=== PATIENT | male | born 1950 | race Caucasian/White ===

== ENCOUNTER 2017-01-09 09:10 | Inpatient (IN) | payer MEDICARE, OTHER ==
--- NOTE | 2017-01-03 13:15 | HP ---
PREOPERATIVE HISTORY AND PHYSICAL: DATE OF ADMISSION: 01/09/17 PROVIDER: Denia Eagle MD * (DICTATED BY DALILA HINES) CHIEF COMPLAINT: Right hip pain. HISTORY OF PRESENT ILLNESS: Mr. Rosario is a 66-year-old gentleman who has had ongoing right hip pain for several years, it has became chronic groin pain and he has pain with prolonged activity, sitting and ambulating. He failed conservative treatment and is interested in surgical intervention for correction of the problem. PAST MEDICAL HISTORY: 1. 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 3. History of rib fracture and shoulder fracture. 4. History of pneumonia. 5. Heart palpitations. 6. Right bundle-branch block. 7. Iridocyclitis. 8. Hypertension. 9. Atrial premature complexes. PAST SURGICAL HISTORY: Inguinal hernia repair. He reports no complications with anesthesia with that procedure. CURRENT MEDICATIONS: 1. Metoprolol succinate 25 mg half tab daily. 2. Dextroamphetamine sulfate 10 mg half tab twice daily as needed. 3. Alprazolam 0.5 mg p.o. t.i.d. p.r.n. 4. Cialis 20 mg one half to one tab p.r.n. 5. Multivitamins one daily. 6. Zinc supplement as needed. 7. Acetaminophen 650 mg p.o. q.4 hours as needed. ALLERGIES: INDOMETHACIN. FAMILY HISTORY: Positive for cancer and heart disease. SOCIAL HISTORY: He lives with his . He works in research. He denies tobacco and recreational drug use. He has minimal alcohol use. He is an active gentleman and is an independent ambulator. REVIEW OF SYSTEMS: Constitutional: Negative for fevers, chills, night sweats, unexplained weight loss, or recent hospitalization. Head: Negative for headaches, lightheadedness, or balance problems. ENT: Negative for blurred or double vision, changes to his hearing, sore throat, runny nose, or frequent nose bleed. Cardiovascular: Negative for chest or arm pain with exertion, history of heart attack. Positive for heart palpitations. Positive for hypertension. Negative for DVT. Respiratory: Negative for chronic cough, shortness of breath with exertion, asthma, or COPD. Gastrointestinal: Negative for heartburn, nausea, vomiting, diarrhea, constipation, or GERD. Genitourinary: Negative for nighttime urination, frequency of urination, urinary tract infections, or kidney problems. Musculoskeletal: Negative for chronic back pain, or recent fractures. Skin: Negative for rashes, lesions, lumps, or sores. Neurologic: Negative for seizure, stroke, epilepsy, depression. Positive for anxiety. Endocrine: Negative for diabetes or thyroid problems. Hematology: Negative for easy bleeding, bruising, or anemia. PHYSICAL EXAMINATION GENERAL: He is a well-developed, well-nourished pleasant male, in no acute distress at rest. He is alert and oriented x3 with appropriate mood and affect. VITAL SIGNS: The patient is 6 feet tall, 211 pounds. Blood pressure 138/86, pulse 76, respirations 14, temperature 97.0. HEENT: Normocephalic, atraumatic. His hearing and vision are grossly intact. NECK: His trachea is midline. RESPIRATORY: Lungs are clear to auscultation bilaterally. No wheezes, rales, or rhonchi. CARDIOVASCULAR: Regular rate and rhythm. No murmurs, rubs, or gallops appreciated. Normal S1 and S2. ABDOMEN: Soft, nondistended, and nontender. Normal bowel sounds. GAIT: The patient has an antalgic gait favoring the right hip. EXTREMITIES: Right lower extremity, skin is intact. There is no abrasion or open wound. Hip flexion to 90 degrees produces groin pain. He has 0 degrees of internal rotation and 30 degrees of external rotation with significant groin pain. There is no edema or varicosities distally. He has 5/5 ankle plantar flexion, dorsiflexion strength. Sensation to light touch is intact. He has 2+ dorsalis pedis pulse. IMAGING: X-rays of the right hip were reviewed and showed degenerative osteoarthritis of the right hip joint with [id number] contact, subchondral sclerosis and subchondral cyst formation. IMPRESSION: Right hip osteoarthritis. PLAN: The patient is to undergo right total hip arthroplasty by Dr. Eagle on . The risks, benefits, and postoperative course were discussed with the patient and he would like to proceed. A prescription for Percocet was sent to his pharmacy for postoperative pain. Coumadin was sent for DVT prophylaxis. All of his questions were answered to his full satisfaction. He is understanding to call if he develops problems or concerns. DALILA HINES [id number]/[facility] #: [id number] EDWARDO
[~2017-01-09 09:10] MED LIST: Buffered Lidocaine 0.9% SYRIN* 5 ML/SYR SYRINGE INTRADERM ONE; Famotidine IV* 10 MG/ML 2 ML (20 mg) IV ONE; Metoclopramide TAB* 10 MG PO ONE
[2017-01-09] MEDS ORDERED: Famotidine IV* 10 MG/ML 2 ML (20 mg) ONE (09:13)
[2017-01-09] MEDS ORDERED: Metoclopramide TAB* 10 MG ONE (09:14)
[2017-01-09] MEDS ORDERED: Buffered Lidocaine 0.9% SYRIN* 5 ML/SYR SYRINGE ONE (09:14)
[2017-01-09] MEDS ORDERED: ceFAZolin 2 GM PREMIX (*) 2 GM/50 ML BAG IVPB ONE (09:14)
[2017-01-09] MEDS ORDERED: Ketorolac INJ* 30 MG/ML 1 ML VIAL ONE (10:26)
[2017-01-09] MEDS ORDERED: Lidocaine 2% PF * 5 ML VIAL ONE (10:26)
[2017-01-09] MEDS ORDERED: Propofol* 10 MG/ML 20 ML BTL IV PUSH ONE (10:26)
[2017-01-09] MEDS ORDERED: Dexamethasone IV* 4 MG/ML 1 ML (4 MG) ONE (10:26)
[2017-01-09] MEDS ORDERED: Ondansetron INJ* 2 MG/ML VIAL ONE (10:26)
[2017-01-09] MEDS ORDERED: fentaNYL* 50 MCG/ML 5 ML VIAL (250 MCG VIAL) ONE (10:27)
[2017-01-09] MEDS ORDERED: Midazolam* 1 MG/ML 5 ML VIAL (5 MG) ONE (10:27)
[2017-01-09] MEDS ORDERED: Rocuronium* 10 MG/ML VIAL ONE (10:27)
[2017-01-09] MEDS ORDERED: KETAMINE HCL* 50 MG/ML 10 ML VIAL ONE (10:27)
[2017-01-09] MEDS ORDERED: Phenylephrine IV* 40 MCG/ML 10 ML SYRINGE ONE (13:03)
[2017-01-09] MEDS ORDERED: Ondansetron ODT TAB* 4 MG PO PRN (13:57)
[2017-01-09] MEDS ORDERED: HYDROmorphone INJ* 1 MG/ML CARPUJECT SYRINGE IV PRN (13:57)
[2017-01-09] MEDS ORDERED: DiMENhydriNATE IV* 50 MG/ML VIAL IV PUSH PRN (13:57)
[2017-01-09] MEDS ORDERED: fentaNYL* 50 MCG/ML 2 ML VIAL (100 MCG VIAL) IV PRN (13:57)
[2017-01-09] MEDS ORDERED: Ondansetron INJ* 2 MG/ML VIAL IV PRN (14:33)
[2017-01-09] MEDS ORDERED: oxyCODONE/Acetamin 5/325 MG* TAB PO PRN (14:33)
[2017-01-09] MEDS ORDERED: Bisacodyl SUPP* 10 MG SUPP PR PRN (14:33)
[2017-01-09] MEDS ORDERED: Morphine INJ* 2 MG/ML 1 ML SYRINGE (TWO MG - NEW SYRINGE VERSION) IV PRN (14:33)
[2017-01-09] MEDS ORDERED: diPHENhydraMINE IV* 50 MG/ML 1 ml VIAL (BENADRYL) IV PRN (14:33)
[2017-01-09] MEDS ORDERED: Temazepam CAP* 15 MG PO PRN (14:33)
[2017-01-09] MEDS ORDERED: Acetaminophen TAB* 325 MG PO PRN (14:33)
[2017-01-09] MEDS ORDERED: oxyCODONE TAB* 5 MG TAB PO PRN (14:33)
[2017-01-09] MEDS ORDERED: Polyethylene Glycol 3350* 17 GM PACKET PO PRN (14:39)
[2017-01-09] MEDS ORDERED: Senna TAB PO PRN (14:40)
--- NOTE | 2017-01-09 14:44 | RAD ---
Indication: Right hip replacement. Single view of the right hip demonstrates right hip replacement in satisfactory position. IMPRESSION: Right hip replacement in satisfactory position.
[2017-01-09] MEDS ORDERED: Bupivacaine 0.5% SDV PF* 30 ML VIAL ONE (14:46)
[2017-01-09] MEDS ORDERED: HYDROmorphone INJ* 1 MG/ML CARPUJECT SYRINGE ONE (15:07)
[2017-01-09] MEDS ORDERED: Labetalol IV* 5 MG/ML 20 ML VIAL ONE (15:24)
[2017-01-09] MEDS ORDERED: fentaNYL* 50 MCG/ML 2 ML VIAL (100 MCG VIAL) ONE ×2 (15:28→15:32)
--- NOTE | 2017-01-09 16:27 | RAD ---
INDICATION: Status post total right hip replacement surgery. COMPARISON: Comparison is made with a prior x-ray study of the right hip from October 16, 2016. TECHNIQUE: AP and lateral portable films of the right hip were obtained. FINDINGS: The patient is status post total right hip replacement surgery. The bones and prostheses are in normal alignment. There is a small amount of air within the soft tissues consistent with the patient's recent surgery. IMPRESSION: STATUS POST TOTAL RIGHT HIP REPLACEMENT SURGERY.
--- NOTE | 2017-01-09 16:58 | RAD ---
INDICATION: Status post total right hip replacement surgery. COMPARISON: Comparison is made with a prior x-ray study of the right hip from October 16, 2016. TECHNIQUE: An AP view of the pelvis was obtained. FINDINGS: The patient is status post total right hip replacement surgery. The bones and prostheses are in normal alignment. There is a small amount of air in the adjacent soft tissues consistent with the patient's recent surgery. IMPRESSION: STATUS POST TOTAL RIGHT HIP REPLACEMENT SURGERY.
[2017-01-09] MEDS ORDERED: oxyCODONE/Acetamin 5/325 MG* TAB ONE (17:58)
[2017-01-09] MEDS ORDERED: Enoxaparin(*) 40 MG/0.4 ML SYR SUBCUT SCH (18:00)
[2017-01-09] MEDS ORDERED: Warfarin TAB(*) 10 MG PO ONE (18:00)
[2017-01-09] MEDS ORDERED: ceFAZolin 1 GM VIAL(*) 1 GM in NS 0.9% 50 ML* 50 ML IVPB SCH (18:00)
[2017-01-09] MEDS: ALPRAZolam TAB* 0.5 MG PO PRN (18:03)
[2017-01-09] MEDS: Metoprolol Succinate XL TAB* 25 MG PO SCH (19:00)
--- NOTE | 2017-01-09 20:07 | CONS ---
CC: Dr. Díaz; Denia Eagle MD CONSULTATION REPORT: DATE OF CONSULTATION: 01/09/17 PRIMARY CARE PROVIDER: Dr. Díaz. PHYSICIAN REQUESTING CONSULTATION: Denia Eagle MD ATTENDING PHYSICIAN: Radha Yañez MD (report dictated provided by Shabana Vee NP). REASON FOR CONSULTATION: Medical comanagement. HISTORY OF PRESENT ILLNESS: Mr. Rosario is a 66-year-old male with the past medical history significant for PAC's, right bundle-branch block, palpitations, tachycardia, who underwent an elective right total hip replacement on 01/09/[address] Eagle. Prior to the surgery, the patient states he has been in a fairly good state of health except for his chronic right hip pain that failed conservative treatment. Preoperatively, the patient was seen by Dr. Mohan, his pathology teacher, who recommended continued beta-luis therapy and followup echocardiogram for his dilated aortic root. At baseline, the patient had an ejection fraction of 50% to 55%. The patient currently in the PACU. The patient reports a mild degree of discomfort and wishes to be repositioned. He denies any chest pain or shortness of breath. Hospitalists were asked to assist in the comanagement of the patient during his hospitalization. PAST MEDICAL HISTORY: 1. 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 3. History of rib fracture and shoulder fracture. 4. History of pneumonia. 5. Heart palpitations. 6. Right bundle-branch block. 7. Iridocyclitis. 8. Hypertension. 9. PAC's, low normal ejection fraction 50% to 55%. 10. Dilatation of the ascending aorta. PAST SURGICAL HISTORY: Inguinal hernia repair. CURRENT MEDICATIONS: 1. Metoprolol succinate 12.5 mg oral daily. 2. Dextroamphetamine 5 mg twice daily. 3. Xanax 0.5 mg oral 3 times daily as needed. 4. Cialis 20 mg half to one tablet as needed. 5. Multivitamin 1 tablet oral daily. 6. Zinc as needed. 7. Tylenol 650 mg oral every 4 hours as needed. ALLERGIES: INDOMETHACIN. FAMILY HISTORY: Positive for cancer and heart disease. SOCIAL HISTORY: The patient lives with his . He works in research. He denies any tobacco or drug use. He has occasional alcohol use. His , Adelaida Milligan, will be the surrogate decision maker in the event the patient cannot make decisions for himself. REVIEW OF SYSTEMS: I performed a 14-point review of systems; all the pertinent positives and negatives are mentioned in the history of present illness. The remaining review of systems are negative. PHYSICAL EXAM: Vital Signs: Temperature 96.8, heart rate 61, respiratory rate 12, oxygen saturation 99% on room air, blood pressure 119/81. Appearance: The patient is alert, pleasant, appeared to be in no apparent distress. Head, Eyes , Ears, Nose and Throat: Normocephalic/atraumatic. Pupils were equal and reactive to light. Neck: Supple. There was no lymphadenopathy noted. Respiratory: Lungs were clear to auscultation. There was no accessory muscle use. Cardiovascular: Rate and rhythm were regular. There were no murmurs, rubs, or gallops heard. S1 and S2 were crisp. Abdomen was soft, nontender, and nondistended. There were bowel sounds x4. Extremities: There was no lower extremity edema. DP and PT pulses were 2+ and symmetric. Musculoskeletal : There was no clubbing or cyanosis noted. The patient exhibited equal strength bilaterally. I did not assess the full strength of his right lower extremity due to the recent hip surgery. His distal circulation and sensation to movement is intact. Neuro: Cranial nerves II through XII are intact. The patient moves all extremities. Lower extremities were intact to light touch. Psych: The patient is alert and oriented x3. LABORATORY DATA: Preop laboratory data from 12/29/16, sodium 136, potassium 4.2 , chloride 102, CO2 29, BUN 10, creatinine 0.8, glucose 123. White blood cell count 6.1, hemoglobin 15.7, hematocrit 46, platelet count 260,000. INR 0.94, PTT 32.4. X-ray from today of the right hip shows right hip replacement in satisfactory position. IMPRESSION: This is a 66-year-old male with past medical history significant only for hypertension, premature atrial contractions and tachycardia who underwent an elective right total hip replacement with Dr. Eagle. Hospitalists were asked to assist with the comanagement of the patient during his postoperative hospitalization. ASSESSMENT AND PLAN: 1. Postop day #0, right total hip replacement. Management will be per Orthopedic Surgery. The patient will have oxycodone and morphine for pain control. The patient will have his Ferrer discontinued on postop day #1. 2. History of hypertension. Blood pressure is currently controlled. Toprol- XL will continue. 3. Narcolepsy. The patient's amphetamine will be continued if we have something comparable on formulary to substitute or if the patient can supply his own. 4. Fluids, electrolytes, and nutrition. The patient will have a regular diet. 7. DVT prophylaxis will be per Orthopedic Surgery. The patient is on Lovenox and will be started this evening on warfarin. TIME SPENT: Time for this consultation was 50 minutes, and 25 minutes were spent with the patient discussing current medications and events leading up to his elective right total hip replacement. Reviewed by SHABANA VEE NP 01/09/2017 2100 [id number]/[facility] #: [id number] EDWARDO
[2017-01-09] MEDS: Magnesium Hydroxide LIQ* 30 ML UDC PO SCH (20:31)
[2017-01-09] MEDS: oxyCODONE/Acetamin 5/325 MG* TAB PO PRN (20:33)
[2017-01-09] MEDS: ceFAZolin 1 GM VIAL(*) 1 GM in NS 0.9% 50 ML* 50 ML IVPB SCH (20:37)
[2017-01-09] MEDS: Docusate CAP* 100 MG PO SCH (20:37)
[2017-01-09] MEDS: DEXTROAMPHETAMINE SULFATE 5 MG PO SCH (21:19)
[2017-01-10] MEDS: ALPRAZolam TAB* 0.5 MG PO PRN ×2 (00:41→23:26)
[2017-01-10] MEDS: oxyCODONE/Acetamin 5/325 MG* TAB PO PRN ×2 (05:07→12:58)
[2017-01-10] MEDS: ceFAZolin 1 GM VIAL(*) 1 GM in NS 0.9% 50 ML* 50 ML IVPB SCH ×2 (05:09→13:11)
[2017-01-10 06:46] LABS: Hematocrit 37 % (42-52); Hemoglobin 12.5 g/dl (14.0-18.0)
[2017-01-10 07:03] LABS: BUN/Creatinine Ratio 16.9 (8-20); Calcium 8.6 mg/dL (8.6-10.3); EGFR African American 118.5 (>60); EGFR Non-African American 92.1 (>60); Potassium 3.8 mmol/L (3.5-5.0)
--- NOTE | 2017-01-10 08:32 | PN ---
Progress Note - Progress Note Date of Service: 01/10/17 SOAP: Subjective: [] Patient seen OOB in chair. He reports good pain control and has no complaints. Ferrer was removed this morning, no urination yet and no BM yet. Denies nausea, fever, chills, chest pain, shortness of breath and RLE numbness. Objective: [] Vital Signs Temp 98.8 F 01/10/17 03:34 Pulse 74 01/10/17 07:28 Resp 16 01/10/17 07:28 BP 113/57 01/10/17 07:28 Pulse Ox 100 01/10/17 07:28 Intake & Output 01/09/17 01/10/17 01/10/17 18:59 06:59 18:59 Intake Total 2950 2505 356 Output Total 305 1600 Balance 2645 905 356 Weight 211 lb Intake: IV Fluids 2950 950 356 LR 2950 950 356 Oral 1555 Output: Ferrer 275 1600 Residual 30 Ferrer 16 Fr 30 Laboratory Last Values Hgb 12.5 g/dl (14.0-18.0) L 01/10/17 06:22 Hct 37 % (42-52) L 01/10/17 06:22 INR (Anticoag Therapy) 1.06 (0.89-1.11) 01/10/17 06:22 Sodium 134 mmol/L (133-145) 01/10/17 06:22 Potassium 3.8 mmol/L (3.5-5.0) 01/10/17 06:22 Chloride 101 mmol/L (101-111) 01/10/17 06:22 Carbon Dioxide 28 mmol/L (22-32) 01/10/17 06:22 Anion Gap 5 mmol/L (2-11) 01/10/17 06:22 BUN 14 mg/dL (6-24) 01/10/17 06:22 Creatinine 0.83 mg/dL (0.67-1.17) 01/10/17 06:22 Est GFR ( Amer) 118.5 (>60) 01/10/17 06:22 Est GFR (Non-Af Amer) 92.1 (>60) 01/10/17 06:22 BUN/Creatinine Ratio 16.9 (8-20) 01/10/17 06:22 Glucose 118 mg/dL (70-100) H 01/10/17 06:22 Calcium 8.6 mg/dL (8.6-10.3) 01/10/17 06:22 General: Sitting in chair comfortably. Calm, cooperative. No acute distress RLE: Dressing is clean, dry and intact with no surrounding erythema Bilateral lower extremities: Calves are supple and nontender without erythema, edema or palpable cords. Negative shawnee's sign. DF/PF intact. Sensation intact distally. DP/PT pulses 2+ and symmetric Assessment: [POD 1 s/p Right total hip arthroplasty 01/09/17, Dr Eagle Plan: []WBAT PT/OT lovenox and coumadin 10 mg today Pain control with percocet Manage claustrophobia with xanax PRN. Patient states that current dose is adequate.
--- NOTE | 2017-01-10 08:45 | OP ---
DATE OF OPERATION: 01/09/17 - ROOM #342 DATE OF : 46 ATTENDING SURGEON: Denia Eagle MD SLITTER SCORER: DALILA Ashraf. Ms. Philip did help throughout the procedure in preparation of the leg, wound retraction, manipulation of the hip, and wound closure. ANESTHESIOLOGIST: Dr. Babar Michel ANESTHESIA: General. PRE-OP DIAGNOSIS: Severe end-stage degenerative osteoarthritis of the right hip joint. POST-OP DIAGNOSIS: Severe end-stage degenerative osteoarthritis of the right hip joint. OPERATIVE PROCEDURE: Right total hip arthroplasty. COMPLICATIONS: None. EBL: 300 cc. SPECIMEN: Bone and cartilage from the femoral head and acetabular reaming sent to pathology. HARDWARE USED: This was uncemented HyperQuest total hip hardware. For the cup, a Tritanium hemispherical cluster hole shell 56E, a single 20-mm cancellous bone screw. For the liner, a cementless MDM liner 0.3. For the stem, an Accolade TMZF 3.5 with a 132-degree neck. For the head, a 28 -4 Biolox Delta ceramic V40 femoral head. For the insert, a 28/48/42E MDM Gnosticism insert. BRIEF HISTORY/INDICATION: Mr. Rosario is a 66-year-old gentleman with years of increasingly severe right hip pain. He failed conservative treatment with antiinflammatories, pain medication, intraarticular injections, and physical therapy. Radiographs showed [id number] arthritis. The patient elected to undergo right total hip arthroplasty due to continued pain and decreased quality of life. Informed consent was obtained from the patient. He understood the risks of the procedure included but were not limited to bleeding, infection, damage to nearby structures, continued pain, need for further surgery, intraoperative fracture, nerve palsy, hardware failure or loosening, dislocation, leg length discrepancy, stroke, heart attack, blood clot, and . He wished to proceed. INTRAOPERATIVE FINDINGS: Intraoperatively, the patient was noted to have severe arthritis with full-thickness loss of cartilage along the acetabulum and femoral head. DESCRIPTION OF PROCEDURE: Mr. Rosario was identified in the preanesthesia unit. His right lower extremity was marked as the correct operative side. Informed consent was signed and placed in the chart. The patient was taken to the operating room and placed under general anesthesia. A Ferrer catheter was placed. The patient was placed in the left lateral decubitus position on the peg board. All bony prominences were well padded. Right lower extremity was prepped and draped in the normal sterile fashion. Preop time-out was made to correctly identify the patient, side, and site. Appropriate perioperative antibiotics were given within 1 hour of incision. A 12-cm posterior hip incision was made with a 10-blade and carried down to the lateral fascia layer. Lateral fascia was then incised in line with the skin incision. Charnley retractor was placed. Piriformis and conjoint tendons were identified. These were elevated off the posterolateral femur and tagged with #5 Ethibond. Next, electrocautery was used to make a standard posterolateral capsular flap and was also tagged with #5 Ethibond. The hip was carefully dislocated. Lesser troch to center of the femoral head measured 60 mm. Oscillating saw was used to make the appropriate femoral neck cut. Femoral head was carefully removed. The femur was retracted anteriorly. After appropriate placement of retractors, the acetabulum was visualized. A long- handled knife was used to sharply remove any remaining labrum from the acetabular rim. The acetabulum was sequentially reamed up to a size 55. Size 55 reamer established a good bleeding subchondral bone bed. Size 55 trial had excellent fit. A Tritanium cluster hole shell 56E was chosen as the final implant. This was impacted into the acetabulum without difficulty. There was excellent stability of the cup. A single 20-mm cancellous bone screw was placed in the superoposterior quadrant for extra stability. An MDM cementless liner 42E was chosen as the liner. This was impacted into the acetabular cup. Stability of the liner was checked and rechecked, and noted to be stable. Attention was turned next to the femur. Box cut osteotome and canal finder were used to enter the proximal femur. The femur was sequentially broached up to a size 3.5. A 3.5 broach had excellent fit and stability. A 132 neck trial was chosen along with a 28 -4 head trial. The appropriate MDM insert was chosen. Lesser troch to center of the femoral head measured 62 mm. The hip was reduced and taken through a range of motion. The hip was stable in all positions. There is good soft tissue tension and appropriate leg lengths. All trials were carefully removed. Final implant chosen was an Accolade TMZF, size 3.5, with a 132-degree neck. The head chosen was a Biolox Delta ceramic V40 femoral head, 28 -4, and the MDM insert was a 28/48/42E MDM insert. The hip was reduced and taken through a range of motion. Hip was stable in all positions. The hip was copiously irrigated with sterile saline. Previously tagged capsular tendons were reapproximated to the posterolateral femur through two trochanteric drill holes. The lateral fascia layer was closed using interrupted #1 Vicryls. The rest of the incision was closed in a layered fashion using 0 and 2-0 Vicryls. Skin was closed using running 3-0 Monocryl with Dermabond. Sterile Adaptic, 4x4s, and paper tape were used to cover the incision. The patient's anesthesia was reversed without difficulty. He was taken to the PACU in stable condition. Intended weight-bearing will be weightbearing as tolerated with posterior hip precautions. Intended DVT prophylaxis will be Coumadin with a Lovenox bridge. [id number]/[facility] #: [id number] [facility] HOSPITALLizette
[2017-01-10] MEDS ORDERED: Piroxicam CAP* 20 MG PO SCH (09:00)
[2017-01-10] MEDS ORDERED: DEXTROAMPHETAMINE SULFATE 5 MG PO PRN (09:19)
[2017-01-10] MEDS: DEXTROAMPHETAMINE SULFATE 5 MG PO SCH (09:35)
[2017-01-10] MEDS: Magnesium Hydroxide LIQ* 30 ML UDC PO SCH ×2 (09:53→21:19)
[2017-01-10] MEDS: Vitamin THERAPEUTIC TAB PO SCH (09:53)
[2017-01-10] MEDS: Docusate CAP* 100 MG PO SCH ×2 (09:53→21:19)
[2017-01-10] MEDS: Enoxaparin(*) 40 MG/0.4 ML SYR SUBCUT SCH (09:57)
--- NOTE | 2017-01-10 13:47 | PN ---
Subjective Date of Service: 01/10/17 Interval History: Patient seen and examined at bedside. Patient reports pain controlled. Ambulated with PT. Patient denies dizziness, CP, SOB. Asking if he can take vitamin C. Family History: Unchanged from Admission Social History: Unchanged from Admission Past Medical History: Unchanged from Admission Objective Active Medications: Acetaminophen (Tylenol Tab*) 650 mg PO Q4H PRN Alprazolam (Xanax Tab*) 0.5 mg PO Q6HR PRN Bisacodyl (Dulcolax Supp*) 10 mg UT DAILY PRN Diphenhydramine HCl (Benadryl Iv*) 25 mg IV Q6H PRN Docusate Sodium (Colace Cap*) 100 mg PO BID SCHg Enoxaparin Sodium (Lovenox(*)) 40 mg SUBCUT 0900 BEVERLY Lactated Ringer's (Lactated Ringers 1000 Ml Bag*) 1,000 mls @ 100 mls/hr IV PER RATE BEVERLY Lactulose (Lactulose*) 30 ml PO Q6H PRN Magnesium Hydroxide (Milk Of Magnesia Liq*) 30 ml PO BID BEVERLY Metoprolol Succinate (Toprol Xl Tab*) 12.5 mg PO QPM BEVERLY Morphine Sulfate (Morphine Inj (Syringe)*) 2 mg IV Q2H PRN Multivitamins (Theragran Tab*) 1 tab PO DAILY BEVERLY Non-Formulary Medication (Dextroamphetamine Sulfate [Dextroamphetamine Sulfate] ) 5 mg PO BID PRN Ondansetron HCl (Zofran Inj*) 4 mg IV Q6H PRN Oxycodone HCl (Roxycodone Tab*) 10 mg PO Q4H PRN Oxycodone/Acetaminophen (Percocet 5/325 Tab*) 1 tab PO Q4H PRN Oxycodone/Acetaminophen (Percocet 5/325 Tab*) 2 tab PO Q4H PRN Pharmacy Profile Note (Coumadin Daily Reminder*) 0 note FOLLOW UP 1700 BEVERLY Polyethylene Glycol/Electrolytes (Miralax*) 17 gm PO DAILY PRN Senna (Senokot Tab*) 1 tab PO BEDTIME PRN Temazepam (Restoril Cap*) 15 mg PO BEDTIME PRN Warfarin Sodium (Coumadin Tab(*)) 10 mg PO ONCE@1700 ONE Vital Signs 01/09/17 01/09/17 01/09/17 15:42 15:45 15:50 Temperature 96.8 F Pulse Rate 69 72 70 Respiratory 16 14 16 Rate Blood Pressure 132/77 121/79 126/78 (mmHg) O2 Sat by Pulse 95 99 99 Oximetry 01/09/17 01/09/17 01/09/17 16:00 16:15 16:30 Temperature Pulse Rate 64 67 61 Respiratory 14 12 12 Rate Blood Pressure 127/77 117/61 119/81 (mmHg) O2 Sat by Pulse 100 97 99 Oximetry 01/09/17 01/09/17 01/09/17 16:45 17:00 17:15 Temperature Pulse Rate 60 69 66 Respiratory 16 14 18 Rate Blood Pressure 130/85 127/82 118/67 (mmHg) O2 Sat by Pulse 99 98 98 Oximetry 01/09/17 01/09/17 01/09/17 17:38 17:40 18:00 Temperature 96.8 F Pulse Rate 63 63 Respiratory 16 16 16 Rate Blood Pressure 137/77 137/77 (mmHg) O2 Sat by Pulse 97 97 Oximetry 01/09/17 01/09/17 01/09/17 18:03 18:35 19:24 Temperature 96.8 F Pulse Rate 69 Respiratory 16 16 16 Rate Blood Pressure 152/91 (mmHg) O2 Sat by Pulse 97 Oximetry 01/09/17 01/09/17 01/09/17 19:33 20:03 20:33 Temperature 96.7 F Pulse Rate 70 Respiratory 16 18 18 Rate Blood Pressure (mmHg) O2 Sat by Pulse 95 Oximetry 01/09/17 01/09/17 01/09/17 21:35 22:33 23:38 Temperature 96.8 F 97.7 F Pulse Rate 61 65 Respiratory 16 16 16 Rate Blood Pressure 113/64 114/63 (mmHg) O2 Sat by Pulse 99 100 Oximetry 01/10/17 01/10/17 01/10/17 00:41 01:04 02:41 Temperature Pulse Rate Respiratory 18 16 Rate Blood Pressure (mmHg) O2 Sat by Pulse 99 Oximetry 01/10/17 01/10/17 01/10/17 03:34 05:07 07:07 Temperature 98.8 F Pulse Rate 70 Respiratory 18 18 18 Rate Blood Pressure 113/57 (mmHg) O2 Sat by Pulse 99 Oximetry 01/10/17 01/10/17 01/10/17 07:28 08:00 10:54 Temperature 97.3 F Pulse Rate 74 77 Respiratory 16 16 16 Rate Blood Pressure 113/57 107/55 (mmHg) O2 Sat by Pulse 100 100 98 Oximetry 01/10/17 01/10/17 11:43 12:58 Temperature 97.4 F Pulse Rate 70 Respiratory 16 18 Rate Blood Pressure 100/55 (mmHg) O2 Sat by Pulse 96 Oximetry Oxygen Devices in Use Now: None Appearance: sitting up in chair, NAD Eyes: No Scleral Icterus, PERRLA Ears/Nose/Mouth/Throat: NL Teeth, Lips, Gums Neck: NL Appearance and Movements; NL JVP Respiratory: Symmetrical Chest Expansion and Respiratory Effort, Clear to Auscultation Cardiovascular: NL Sounds; No Murmurs; No JVD, RRR Abdominal: NL Sounds; No Tenderness; No Distention Extremities: No Edema Skin: - - R hip incision C/D/I Neurological: Alert and Oriented x 3 Lines/Tubes/Other Access: Clean, Dry and Intact Peripheral IV Nutrition: Taking PO's Result Diagrams: 01/10/17 06:22 01/10/17 06:22 Assess/Plan/Problems-Billing Patient is a 66 y/o M w/ PMH significant for HTN, norcolepsy, anxiety, and palpitations who underwent a right total hip replacement with Dr Eagle on 2016. Hospitalists were asked to assist with co-management. - Patient Problems (1) Status post total replacement of right hip Comment: Management per Ortho. H/H stable. Ferrer to be d/c today. PT/OT. Pain control. (2) Palpitations Comment: No s/s of such. Continue Toprol. (3) HTN (hypertension) Comment: Controlled. Continue Toprol. (4) Anxiety Comment: PRN Xanax (5) DVT prophylaxis Comment: SQ Lovenox and warfarin. (6) Full code status Status and Disposition: Dispo per Ortho. Hospital medicine will sign off as medicine issues are stable. Please call with any other further questions or concerns.
[2017-01-10] MEDS ORDERED: Warfarin TAB(*) 10 MG PO ONE (17:00)
[2017-01-10] MEDS: Metoprolol Succinate XL TAB* 25 MG PO SCH (17:56)
[2017-01-10] MEDS: Ascorbic Acid TAB* 500 MG PO SCH (21:19)
[2017-01-11 06:57] LABS: Hematocrit 37 % (42-52); Hemoglobin 12.5 g/dl (14.0-18.0)
[2017-01-11] MEDS: Enoxaparin(*) 40 MG/0.4 ML SYR SUBCUT SCH (08:24)
[2017-01-11] MEDS: oxyCODONE/Acetamin 5/325 MG* TAB PO PRN (08:25)
[2017-01-11] MEDS: Docusate CAP* 100 MG PO SCH (08:25)
[2017-01-11] MEDS: Ascorbic Acid TAB* 500 MG PO SCH (08:25)
[2017-01-11] MEDS: Magnesium Hydroxide LIQ* 30 ML UDC PO SCH (08:26)
[2017-01-11] MEDS: Vitamin THERAPEUTIC TAB PO SCH (08:26)
--- NOTE | 2017-01-11 08:56 | PN ---
Progress Note - Progress Note Date of Service: 01/11/17 SOAP: Subjective: []Patient seen OOB in chair. He is comfortable and has no complaints of pain or otherwise. Denies chest pain, shortness of breath, nausea, vomiting, leg numbness, fever or chills. He is tolerating PO, urinating and has had a BM. He would like to go home today. Objective: [] Vital Signs Temp 98.1 F 01/11/17 07:46 Pulse 72 01/11/17 07:46 Resp 16 01/11/17 08:25 BP 95/56 01/11/17 07:46 Pulse Ox 97 01/11/17 07:46 Intake & Output 01/10/17 01/11/17 01/11/17 18:59 06:59 18:59 Intake Total 836 360 Output Total 1050 400 Balance -214 -40 Intake: IV Fluids 356 LR 356 Oral 480 360 Output: Urine 1050 400 Other: Date of Last Bowel 01-09-17 Movement # Bowel Movements 1 # Voids 1 Laboratory Last Values Hgb 12.5 g/dl (14.0-18.0) L 01/11/17 06:09 Hct 37 % (42-52) L 01/11/17 06:09 INR (Anticoag Therapy) 1.74 (0.89-1.11) H 01/11/17 06:09 Sodium 134 mmol/L (133-145) 01/10/17 06:22 Potassium 3.8 mmol/L (3.5-5.0) 01/10/17 06:22 Chloride 101 mmol/L (101-111) 01/10/17 06:22 Carbon Dioxide 28 mmol/L (22-32) 01/10/17 06:22 Anion Gap 5 mmol/L (2-11) 01/10/17 06:22 BUN 14 mg/dL (6-24) 01/10/17 06:22 Creatinine 0.83 mg/dL (0.67-1.17) 01/10/17 06:22 Est GFR ( Amer) 118.5 (>60) 01/10/17 06:22 Est GFR (Non-Af Amer) 92.1 (>60) 01/10/17 06:22 BUN/Creatinine Ratio 16.9 (8-20) 01/10/17 06:22 Glucose 118 mg/dL (70-100) H 01/10/17 06:22 Calcium 8.6 mg/dL (8.6-10.3) 01/10/17 06:22 General: Calm and cooperative in no acute distress. RLE: Dressing CDI after being changed by Dr. Eagle this morning with no concerns over wound site. Bilateral lower extremities: calves supple and nontender without erythema, edema or palpable cords. Negative shawnee's sign. DP and PT pulses 2+ and symmetric. Capillary refill is brisk distally. Sensation intact distally. DF/PF intact Assessment: []POD 2 s/p right total hip arthroplasty 01/09 Dr. Eagle Plan: []WBAT PT/OT Lovenox and Coumadin 4 mg today Pain controlled with percocet Plan to D/C today
[2017-01-11 12:30] VITALS: BP 105/53
[2017-01-11] MEDS ORDERED: Warfarin TAB(*) 4 MG PO ONE (17:00)
--- NOTE | 2017-01-12 02:20 | DS ---
DISCHARGE SUMMARY: DATE OF ADMISSION: 01/09/17 DATE OF DISCHARGE: 01/11/17 PROVIDER AND SURGEON: Dr. Denia Eagle * (DICTATED BY DALILA HUI) [place] APPRENTICE: DALILA Ashraf. ADMITTING DIAGNOSIS: Severe end-stage degenerative osteoarthritis of the right hip joint. CONSULTATIONS: Physical Therapy and Occupational Therapy. Hospitalist service. HISTORY OF PRESENT ILLNESS: Mr. Rosario is a 66-year-old gentleman, who has had ongoing right hip pain for several years and he has recurrent chronic groin pain and he has had pain with prolonged activity, sitting and ambulating. He failed conservative treatment and is interested in surgical intervention for correction of the problems. HOSPITAL COURSE: The patient was admitted to the [facility] on 01/09 and underwent a right total hip arthroplasty with no complications. The patient recovered briefly in the postanesthesia care unit and then was transferred to the short stay surgical unit in stable condition. On postop day #1, patient's H and H 12.5/37, INR was 1.06 after a dose of Coumadin of 6 mg the night before. Dressing was clean, dry, and intact. Bilateral extremities were neurovascularly intact. He was able to dorsiflex and plantarflex with good strength. The patient was able to get out of bed with physical therapy. Pain was well controlled with Percocet. His Ferrer was removed and he was able to urinate without difficulty. The patient suffers at baseline from claustrophobia, which was well controlled with Xanax as needed. On postop day # 2, his incision was found to be benign, minimal discharge, no surrounding erythema, and no warmth. The patient's H and H was 12.5 and 37. His INR was 1.74 after a 10 mg dose of Coumadin the night before. Pain was again controlled with Percocet. The patient was able to ambulate with use of a rolling walker and assistance. He was discharged on postop day #2, 01/11/17. Throughout his hospital course, his vital signs remained stable and the patient was afebrile. DISCHARGE CONDITION: Stable. DISCHARGE MEDICATIONS: Include: 1. Cialis 20 mg p.o. at bedtime p.r.n. 2. Acetaminophen 650 mg p.o. q.a.m. 3. Piroxicam 20 mg q.a.m. 4. Metoprolol 12.5 mg q.p.m. 5. Dextroamphetamine 10 mg tablet, take 5 mg p.o. b.i.d. 6. Xanax 0.5 mg p.o. q.6 hours p.r.n. 7. Zinc 15 mg. 8. Multivitamin one tablet daily. 9. Vitamin C 500 mg p.o. q.a.m. 10. Senokot 1 tablet p.o. at bedtime p.r.n. 11. Docusate 100 mg p.o. b.i.d. 12. Percocet 5/325 mg 1 to 2 tablets every 4 hours p.r.n. with a maximum daily dose of 12. 13. Coumadin 4 mg daily until 01/15 when rechecked by home nurses. DISCHARGE INSTRUCTIONS: The patient is weightbearing as tolerated. He may shower and allow water to run over his incision site and wash with light soap. He may not submerge the wound. He will cover with gauze and an lizett wrap. Diet is a regular diet. He will use stool softeners as needed. He was sent home knowing he can take Colace. He also takes another bowel regimen of his own prior to his surgery. Hip precautions, do not cross legs or bend greater than 90 degrees or squat. Home nurses will be coming Mondays and for INR checks. Physical Therapy will be coming twice a week as well. Antibiotics required prior to any dental work. DALILA HUI [id number]/[facility] #: [id number] EDWARDO
== END 2017-01-11 14:00 | disposition home health service (06) | DRG 470 ==
LOC: AA 09:10 → SSU 17:33
PROVIDERS: ADMIT Orthopaedic Surgery Adult Reconstructive Orthopaedic Surgery; ATTEND Orthopaedic Surgery Adult Reconstructive Orthopaedic Surgery
PROC: 0SR903A Replacement of Right Hip Joint with Ceramic Synthetic Substitute, Uncemented, Open Approach (ICD-10-PCS; principal; 2017-01-09 11:45)
DX: M16.11 Unilateral primary osteoarthritis, right hip (principal); M02.30 Reiter's disease, unspecified site; G47.419 Narcolepsy without cataplexy; I10 Essential (primary) hypertension; I45.10 Unspecified right bundle-branch block; M85.651 Other cyst of bone, right thigh; I77.819 Aortic ectasia, unspecified site; F40.240 Claustrophobia; F41.9 Anxiety disorder, unspecified; R00.2 Palpitations; Z88.8 Allergy status to other drugs, medicaments and biological substances; Z82.49 Family history of ischemic heart disease and other diseases of the circulatory system; Z72.89 Other problems related to lifestyle
CPT/HCPCS: 36415; 72170; 80048; 85014; 85018; 85610; A9270-GY; C1713; C1776; J0690; J1100; J1170; J1650; J1885; J2250; J2405; J2704; J3010

== ENCOUNTER 2017-05-05 12:46 | Emergency (ER) | payer OTHER, MEDICARE ==
[2017-05-05] MEDS ORDERED: Albuterol/Ipratropium NEB.SOL* Albuterol 2.5 MG/Ipratropium 0.5 MG 3 ML INH ONE (13:47)
--- NOTE | 2017-05-05 14:24 | RAD ---
HISTORY: Hemoptysis, cough COMPARISONS: December 29, 2016 VIEWS: 4: Frontal dual-energy and lateral views of the chest. FINDINGS: CARDIOMEDIASTINAL SILHOUETTE: The aorta is tortuous. The cardiomediastinal silhouette is otherwise unremarkable. YOLANDA: The yolanda are normal. PLEURA: There is stable pleural thickening versus a small chronic pleural effusion along the right lower lung LUNG PARENCHYMA: The lungs are clear. ABDOMEN: The upper abdomen is clear. There is no subphrenic gas. BONES AND SOFT TISSUES: No bone or soft tissue abnormalities are noted. OTHER: None. IMPRESSION: RIGHT PLEURAL THICKENING VERSUS SMALL CHRONIC RIGHT PLEURAL EFFUSION.
[2017-05-05 15:09] VITALS: BP 164/100
--- NOTE | 2017-05-05 15:09 | UC ---
Respiratory Complaint HPI - HPI Summary HPI Summary: 66yo patient who c/o 5 days of coughing and chest congestion after a cold. He states 5 days ago he had non quantified fever but not ever since. For the past day has noticed intermittent streaks of blood tinging his sputum, which is foamy white. Denies contact with anyone with chronic cough or TBC, denies exposure to asbestos, has very remote history of minimal cigarette smoking many years ago. Denies exposure to second hand smoke or FHX of lung cancer. - History of Current Complaint Chief Complaint: UCRespiratory Stated Complaint: COUGH Time Seen by Provider: 05/05/17 13:28 Hx Obtained From: Patient Onset/Duration: Gradual Onset, Lasting Days Severity Initially: Mild Severity Currently: Moderate Pain Intensity: 0 Associated Signs And Symptoms: Positive: Wheezing, Nasal Congestion - Risk Factors Pulmonary Embolism Risk Factors: Negative Cardiac Risk Factors: Negative Pseudomonas Risk Factors: Negative Tuberculosis Risk Factors: Negative - Allergies/Home Medications Allergies/Adverse Reactions: Allergies Allergy/AdvReac Type Severity Reaction Status Date / Time indomethacin Allergy Dizziness Verified 05/05/17 13:23 Home Medications: Home Medications Docusate CAP* [Colace Cap*] 100 mg PO BID PRN 05/05/17 [History Confirmed ] Zinc 50 mg PO DAILY 05/05/17 [History Confirmed 05/05/17] PMH/Surg Hx/FS Hx/Imm Hx Previously Healthy: Yes Cardiovascular History: Hypertension Respiratory History: Pneumonia - Surgical History Surgical History: Yes Surgery Procedure, Year, and Place: OPEN LEFT INGUNIAL REPAIR WITH MESH 2009. TONSILLECTOMY 1949'S. R hip replacement - Social History Alcohol Use: Occasionally Alcohol Amount: 1 DRINK Q 2 DAYS Substance Use Type: None Smoking Status (MU): Former Smoker Type: Cigarettes When Did the Patient Quit Smoking/Using Tobacco: 1998 - Immunization History Most Recent Influenza Vaccination: 12/26/16 Most Recent Pneumonia Vaccination: NONE Review of Systems Constitutional: Chills Respiratory: Shortness Of Breath, Cough All Other Systems Reviewed And Are Negative: Yes Physical Exam Triage Information Reviewed: Yes Appearance: Well-Appearing, No Pain Distress Vital Signs: Initial Vital Signs Temp 98.4 F 05/05/17 13:18 Pulse 78 05/05/17 13:18 Resp 16 05/05/17 13:18 BP 168/111 05/05/17 13:18 Pulse Ox 100 05/05/17 13:18 Vital Signs Reviewed: Yes Eyes: Positive: Conjunctiva Clear ENT: Positive: Pharynx normal, TMs normal, Uvula midline Neck: Positive: Supple, Nontender, No Lymphadenopathy Respiratory: Positive: Chest non-tender, No respiratory distress, No accessory muscle use, Rhonchi, Wheezing, Expiration, Plerual rub - RLL Cardiovascular: Positive: RRR, No Murmur, Pulses Normal, Brisk Capillary Refill Abdomen Description: Positive: Nontender, No Organomegaly, Soft Bowel Sounds: Positive: Present UC Diagnostic Evaluation - Laboratory O2 Sat by Pulse Oximetry: 100 Respiratory Course/Dx - Course Course Of Treatment: xray compared to study done in December 29 2016 shows right pleural thickening vs small pleural effusion. Follow up with PCP for f/u CT chest and work up for hemoptysis. Patient did not take metoprolol yesterday , d/ w patient symptoms for HTN denies SOB, ABDULLAHI, dizziness. F/u PCP to evaluate dosing and monitor BP. Start symbicort inhaler bid as prescriber, oral hydration - Differential Dx/Diagnosis Provider Diagnoses: Bronchitis. HTN. Hemoptisis Discharge - Discharge Plan Condition: Stable Disposition: HOME Prescriptions: Budesonide/Formote 160/4.5(NF) [Symbicort 160/4.5 (NF)] 1 puff INH BID 10 Days # 1 mdi Patient Education Materials: Hemoptysis (ED), Acute Bronchitis (ED), Chronic Hypertension (ED) Referrals: Chace Díaz MD [Primary Care Provider] -
== END 2017-05-05 15:20 | disposition home or self-care (01) ==
LOC: UCEAST 12:46
DX: J40 Bronchitis, not specified as acute or chronic (principal); I10 Essential (primary) hypertension; R04.2 Hemoptysis; Z87.891 Personal history of nicotine dependence
CPT/HCPCS: 71046; 99212; A9270-GY; G0463

== ENCOUNTER 2018-06-29 18:08 | Emergency (ER) | payer OTHER ==
--- OUTSIDE RECORDS SUMMARY | 2018-06-29 18:44 | XMS REPORT | Continuity of Care Document ---
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 Than 100 38 Comp Metabolic Panel 11/14/2011 [facility] Sodium 139 mmol/L 135-145 [phone] Potassium 3.9 mmol/L 3.5-5.0 Chloride 102 mmol/L 101-111 Co2 (Carbon Dioxide) 30.0 mmol/L 22-32 Anion Gap 7.0 mmol/L 2-11 39 Glucose 88 mg/dL 70-100 BUN 12 mg/dL 6-24 Creatinine 0.9 mg/dL 0.50-1.40 One Over Creatinine 1.11 BUN/Creatinine Ratio 13.3 8-20 Calcium 8.9 mg/dL 8.1-9.9 Total Protein 6.3 GM/DL 6.2-8.1 Albumin 4.1 GM/DL 3.2-5.2 Globulin 2.2 GM/DL 2-4 Albumin/Globulin Ratio 1.9 1-3 Bilirubin Total 1.2 mg/dL 0.4-1.5 40 Alkaline Phosphatase 70 U/L 39-117 Alt (SGPT) 18 U/L 17-63 Ast (Sgot) 25 U/L 12-42 eGFR Non- 85.2 > 60 eGFR 109.6 > 60 41 Laboratory test 11/14/2011 [facility] PSA 1.13 NG/ML 0-4 42 finding [phone] CBC Auto Diff 11/14/2011 [facility] White Blood 5.6 CUMM 4.8-10.8 [phone] Count Red Cell Count 4.98 CUMM 4.6-6.2 Hemoglobin 15.7 g/dL 14.0-18.0 Hematocrit 46 % 42-52 Mean Corpuscular Volume 93 um3 80-94 Mean Corpuscular Hemoglob 32 pg High 27-31 Mean Corpuscular HGB Cone 34 g/dL 32-36 Redcell Distribution WDTH 13 % 10.5-15 Platelet Count 228 CUMM 150-450 Mean Platelet Volume 9.6 um3 7.4-10.4 Gran % 61.9 % 38-83 Lymph % 20.8 % 20-45 Mononuclear % 10.7 % High 1-9 Eosinophil % 5.7 % 0-6 Basophil % 0.9 % 0-2 Abs Lymphs 1.2 1.0-4.8 Abs Mononuclear 0.6 0-0.8 Absolute Neutrophil Count 3.5 1.5-7.7 Abs Eosinophils 0.3 0-0.6 Abs Basophils 0 0-0.2 Urine DIP 10/18/2011 In House Lab Leukocytes TRACE Neg (607)- - Urine Nitrites NEG Neg Urine pH 7 High 5-6 Total Protein, Urine TRACE Neg Urine Glucose NORM Norm Urine Ketones NEG Neg Urobilinogen NORM Norm Urine Bilirubin NEG Neg Urine Blood NEG Neg Specific [place] NA Low 1.01-1.02 Urine DIP 07/11/2011 In House Lab Leukocytes neg Neg (607)- - Urine Nitrites neg Neg Urine pH 5 5-6 Total Protein, Urine neg Neg Urine Glucose norm Norm Urine Ketones neg Neg Urobilinogen norm Norm Urine Bilirubin neg Neg Urine Blood neg Neg Specific [place] 1.015 1.01-1.02 CBC Auto Diff 11/10/2010 [facility] White Blood 7.5 CUMM 4.8-10.8 [phone] Count Red Cell Count 4.96 CUMM 4.6-6.2 Hemoglobin 15.7 g/dL 14.0-18.0 Hematocrit 45 % 42-52 Mean Corpuscular Volume 91 um3 80-94 Mean Corpuscular Hemoglob 32 pg High 27-31 Mean Corpuscular HGB Cone 35 g/dL 32-36 Redcell Distribution WDTH 13 % 10.5-15 Platelet Count 268 CUMM 150-450 Mean Platelet Volume 9.6 um3 7.4-10.4 Gran % 59.5 % 38-83 Lymph % 23.7 % Low 25-47 Mononuclear % 11.0 % High 1-9 Eosinophil % 4.9 % 0-6 Basophil % 0.9 % 0-2 Abs Lymphs 1.8 1.0-4.8 Abs Mononuclear 0.8 0-0.8 Absolute Neutrophil Count 4.4 1.5-7.7 Abs Eosinophils 0.4 0-0.6 Abs Basophils 0.1 0-0.2 Comp Metabolic Panel 11/10/2010 [facility] Sodium 138 mmol/L 135-145 [phone] Potassium 3.2 mmol/L Low 3.5-5.0 Chloride 103 mmol/L 101-111 Co2 (Carbon Dioxide) 26.0 mmol/L 22-32 Anion Gap 9.0 mmol/L 2-11 43 Glucose 121 mg/dL High 70-100 BUN 17 mg/dL 6-24 Creatinine 0.9 mg/dL 0.50-1.40 One Over Creatinine 1.11 BUN/Creatinine Ratio 18.9 8-20 Calcium 9.0 mg/dL 8.1-9.9 Total Protein 6.3 GM/DL 6.2-8.1 Albumin 3.9 GM/DL 3.2-5.2 Globulin 2.4 GM/DL 2-4 Albumin/Globulin Ratio 1.6 1-3 Bilirubin Total 1.1 mg/dL 0.4-1.5 44 Alkaline Phosphatase 69 U/L 39-117 Alt (SGPT) 19 U/L 17-63 Ast (Sgot) 33 U/L 12-42 eGFR Non- 85.5 > 60 eGFR 110.0 > 60 45 Laboratory test 11/10/2010 [facility] Amylase 87 U/L 20-120 46 finding [phone] Lipase 40 U/L 22-51 RBC Leukoreduced 11/10/2010 [facility] Patient Blood O POSITIVE [phone] Type Antibody Screen NEGATIVE Urinalysis 11/10/2010 [facility] Ua Color YELLOW Yellow W/Microscopic [phone] Appearance-Urine CLEAR Clear Specific [place]-Ur 1.042 High 1.010-1.030 Esterase-Urine NEGATIVE Negative Nitrite NEGATIVE Negative Aubvolyjayga-Cd-JHK NEGATIVE Negative Protein-Urine NEGATIVE Negative PH-Urine 6.5 5-9 Blood-Urine TRACE Abnormal Negative Ketones-Urine NEGATIVE Negative Bilirubin-Ur NEGATIVE Negative Glucose-Urine NEGATIVE Negative WBC-Urine 0-2 0-5 RBC-Urine 0-2 0-2 Epith Cells-Ur RARE None CBC Auto Diff 10/26/2010 [facility] White Blood 5.9 CUMM 4.8-10.8 [phone] Count Red Cell Count 4.95 CUMM 4.6-6.2 Hemoglobin 15.9 g/dL 14.0-18.0 Hematocrit 46 % 42-52 Mean Corpuscular Volume 92 um3 80-94 Mean Corpuscular Hemoglob 32 pg High 27-31 Mean Corpuscular HGB Cone 35 g/dL 32-36 Redcell Distribution WDTH 13 % 10.5-15 Platelet Count 241 CUMM 150-450 Mean Platelet Volume 9.5 um3 7.4-10.4 Gran % 62.1 % 38-83 Lymph % 19.1 % Low 25-47 Mononuclear % 12.8 % High 1-9 Eosinophil % 5.8 % 0-6 Basophil % 0.2 % 0-2 Abs Lymphs 1.1 1.0-4.8 Abs Mononuclear 0.8 0-0.8 Absolute Neutrophil Count 3.7 1.5-7.7 Abs Eosinophils 0.3 0-0.6 Abs Basophils 0 0-0.2 Lipid Profile 10/26/2010 [facility] Triglyceride 59 mg/dL 40-200 (Trig/Chol/HDL) [phone] Cholesterol 254 mg/dL High Less Than 200 47 High Density Lipoprotein 74 mg/dL High 40-60 48 Cholesterol/HDL Ratio 3.43 AVERAGE 1-4.97 Low Density Lipoprotein 168 mg/dL High Less Than 100 49 Comp Metabolic Panel 10/26/2010 [facility] Sodium 139 mmol/L 135-145 [phone] Potassium 4.0 mmol/L 3.5-5.0 Chloride 105 mmol/L 101-111 Co2 (Carbon Dioxide) 27.0 mmol/L 22-32 Anion Gap 7.0 mmol/L 2-11 50 Glucose 96 mg/dL 70-100 BUN 11 mg/dL 6-24 Creatinine 0.9 mg/dL 0.50-1.40 One Over Creatinine 1.11 BUN/Creatinine Ratio 12.2 8-20 Calcium 8.9 mg/dL 8.1-9.9 Total Protein 6.5 GM/DL 6.2-8.1 Albumin 4.0 GM/DL 3.2-5.2 Globulin 2.5 GM/DL 2-4 Albumin/Globulin Ratio 1.6 1-3 Bilirubin Total 0.9 mg/dL 0.4-1.5 51 Alkaline Phosphatase 66 U/L 39-117 Alt (SGPT) 15 U/L Low 17-63 Ast (Sgot) 24 U/L 12-42 eGFR Non- 85.5 > 60 eGFR 110.0 > 60 52 Laboratory test 10/26/2010 [facility] TSH 1.22 MIU/ ML 0.34-5.60 finding [phone] PSA Screening 0.66 NG/ML 0-4 Urine DIP 09/28/2010 In House Lab Leukocytes neg Neg (607)- - Urine Nitrites neg Neg Urine pH 5 5-6 Total Protein, Urine neg Neg Urine Glucose norm Norm Urine Ketones neg Neg Urobilinogen norm Norm Urine Bilirubin neg Neg Urine Blood neg Neg Specific [place] na Low 1.01-1.02 Surgical 07/14/2009 [facility] Surgical --- 53 Pathology [phone] Pathology <SEE NOTE> Statin 07/01/2009 [facility] Ast (Sgot) 22 U/L 12- 4 [phone] 2 Alt (SGPT) 17 U/L 17-63 Lipid Profile 07/01/2009 [facility] Triglyceride 40 mg/dL 40-200 (Trig/Chol/HDL) [phone] Cholesterol 255 mg/dL High Less Than 200 54 High Density Lipoprotein 74 mg/dL High 40-60 55 Cholesterol/HDL Ratio 3.45 AVERAGE 1-4.97 Low Density Lipoprotein 173 mg/dL High Less Than 100 56 Laboratory test 07/01/2009 [facility] PSA Screening 0.44 NG/ML 0-4 57 finding [phone] Basic Metabolic 07/01/2009 [facility] Sodium 140 mmol /L 135-145 Panel [phone] Potassium 4.3 mmol/L 3.5-5.0 Chloride 104 mmol/L 101-111 Co2 (Carbon Dioxide) 30.0 mmol/L 22-32 Anion Gap 6.0 mmol/L 2-11 58 Glucose 96 mg/dL 70-100 59 BUN 15 mg/dL 6-24 Creatinine 1.00 mg/dL 0.50-1.40 One Over Creatinine 1.00 BUN/Creatinine Ratio 15.0 8-20 Calcium 9.0 mg/dL 8.1-9.9 60 eGFR Non- 81.0 > 60 eGFR 98.0 > 60 61 Urine DIP 06/25/2009 In House Lab Leukocytes NEG Neg (607)- - Urine Nitrites NEG Neg Urine pH 5 5-6 Total Protein, Urine NEG Neg Urine Glucose NORM Norm Urine Ketones NEG Neg Urobilinogen NORM Norm Urine Bilirubin NEG Neg Urine Blood NEG Neg Specific [place] N/A Low 1.01-1.02 Hemoccult 05/07/2008 In House Lab Stool-Occult Blood #1 neg Neg (607)- - Stool-Occult Blood #2 neg Neg Stool-Occult Blood #3 neg Neg Urine DIP 05/01/2008 In House Lab Leukocytes neg Neg (607)- - Urine Nitrites neg Neg Urine pH 7 High 5-6 Total Protein, Urine neg Neg Urine Glucose norm Norm Urine Ketones neg Neg Urobilinogen norm Norm Urine Bilirubin neg Neg Urine Blood neg Neg Specific [place] n/a Low 1.01-1.02 Laboratory test 04/22/2008 [facility] PSA Screening 0.59 NG/ML 0-4 62 finding [phone] Comp Metabolic 04/22/2008 [facility] Sodium 138 mmol/ L 135-145 Panel [phone] Potassium 3.9 mmol/L 3.5-5.0 Chloride 102 mmol/L 101-111 Co2 (Carbon Dioxide) 29.0 mmol/L 22-32 Anion Gap 7.0 mmol/L 2-11 63 Glucose 92 mg/dL 70-100 64 BUN 14 mg/dL 6-24 Creatinine 0.90 mg/dL 0.50-1.40 One Over Creatinine 1.10 BUN/Creatinine Ratio 15.6 8-20 Calcium 9.0 mg/dL 8.1-9.9 65 Total Protein 6.1 GM/DL Low 6.2-8.1 Albumin 3.7 GM/DL 3.6-5.4 Globulin 2.4 GM/DL 2-4 Albumin/Globulin Ratio 1.5 1-3 Bilirubin Total 1.0 mg/dL 0.4-1.5 Alkaline Phosphatase 76 U/L 39-117 Alt (SGPT) 16 U/L Low 17-63 Ast (Sgot) 21 U/L 12-42 Lipid Profile 04/22/2008 [facility] Triglyceride 64 mg/dL 40-200 (Trig/Chol/HDL) [phone] Cholesterol 243 mg/dL High Less Than 200 66 High Density Lipoprotein 79 mg/dL High 40-60 67 Cholesterol/HDL Ratio 3.08 AVERAGE 1-4.97 Low Density Lipoprotein 151 mg/dL High Less Than 100 68 Laboratory test 01/23/2007 [facility] PSA Screening 0.42 NG/ML 0-4 69 finding [phone] Lipid Profile 01/23/2007 [facility] Cholesterol/HD 3.47 AVERAGE 1-4.97 (Trig/Chol/HDL) [phone] L Ratio Cholesterol 267 mg/dL High Less Than 200 70 Triglyceride 78 mg/dL 40-200 High Density Lipoprotein 77 mg/dL High 40-60 71 Low Density Lipoprotein 174 mg/dL High Less Than 100 72 Comp Metabolic 01/23/2007 [facility] One Over Creatinine 0.90 Panel [phone] Anion Gap 5.0 mmol/L 2-11 73 Albumin/Globulin Ratio 1.7 1-3 Albumin 3.9 GM/DL 3.6-5.4 Alkaline Phosphatase 68 U/L 39-117 Alt (SGPT) 15 U/L Low 17-63 Ast (Sgot) 21 U/L 12-42 BUN 13 mg/dL 6-24 Calcium 8.9 mg/dL 8.7-10.2 Chloride 105 mmol/L 101-111 Co2 (Carbon Dioxide) 30.0 mmol/L 22-32 Globulin 2.3 GM/DL 2-4 Glucose 99 mg/dL 70-105 Potassium 4.1 mmol/L 3.5-5.0 Sodium 140 mmol/L 135-145 Bilirubin Total 1.0 mg/dL 0.4-1.5 Total Protein 6.2 GM/DL 6.2-8.1 BUN/Creatinine Ratio 11.8 8-20 Creatinine 1.1 mg/dL 0.5-1.4 Urine DIP 01/09/2007 In House Lab Leukocytes NEG Neg (607)- - Urine Nitrites NEG Neg Urine pH 5 5-6 Total Protein, Urine NL Neg Urine Glucose NL Norm Urine Ketones NL Neg Urobilinogen NL Norm Urine Bilirubin NL Neg Urine Blood NL Neg Specific [place] N/A Low 1.01-1.02 Lipid Panel 01/10/2006 Other Cholesterol, Total 275 High Cholesterol/HDL Ratio 2.86 HDL 96 High Low Density Lipoprotein 166 High Triglycerides 64 Laboratory test finding 01/10/2006 Other [facility] 123 PSA - Prostate Specific Antige 0.60 Laboratory test finding 06/16/2002 [facility] PSA Screening 0.4 (607)- - 1 Because ethnic data is not always readily available, this report includes an eGFR for both -Americans and non- Americans. The National Kidney Disease Education Program (NKDEP) does not endorse the use of the MDRD equation for patients that are not between the ages of 18 and 70, are , have extremes of body size, muscle mass, or nutritional status, or are non- or non-. According to the National Kidney Foundation, irrespective of diagnosis, the stage of the disease is based on the level of kidney function: Stage Description GFR(mL/min/1.73 m(2)) 1 Kidney damage with normal or decreased GFR 90 2 Kidney damage with mild decrease in GFR 60-89 3 Moderate decrease in GFR 30-59 4 Severe decrease in GFR 15-29 5 Kidney failure <15 (or dialysis) 2 Desirable: <150 Borderline High: 150-199 High: 200-499 Very High: >500 3 Desirable: <200 Borderline High: 200-239 High: >239 4 Low: <40 Desirable: 40-60 High: >60 5 Desirable: <100 Near Optimal: 100-129 Borderline High: 130-159 High: 160-189 Very High: >189 6 Therapeutic target for the treatment of diabetes mellitus patients is <7% HBA1C, and in selective patients <6.0%. Please refer to [place] [employer] diabetic care guidelines for further information. 7 Serum levels of PSA measured using the [employer] DXI Hybritech immunoassay should not be interpreted as absolute evidence of the presence or absence of disease. The PSA value should be used in conjunction with other pertinent clinical diagnostic procedures. The values obtained with different assay methods or kits cannot be used interchangeably. 8 Because ethnic data is not always readily available, this report includes an eGFR for both -Americans and non- Americans. The National Kidney Disease Education Program (NKDEP) does not endorse the use of the MDRD equation for patients that are not between the ages of 18 and 70, are , have extremes of body size, muscle mass, or nutritional status, or are non- or non-. According to the National Kidney Foundation, irrespective of diagnosis, the stage of the disease is based on the level of kidney function: Stage Description GFR(mL/min/1.73 m(2)) 1 Kidney damage with normal or decreased GFR 90 2 Kidney damage with mild decrease in GFR 60-89 3 Moderate decrease in GFR 30-59 4 Severe decrease in GFR 15-29 5 Kidney failure <15 (or dialysis) 9 Desirable: <150 Borderline High: 150-199 High: 200-499 Very High: >500 10 Desirable: <200 Borderline High: 200-239 High: >239 11 Low: <40 Desirable: 40-60 High: >60 12 Desirable: <100 Near Optimal: 100-129 Borderline High: 130-159 High: 160-189 Very High: >189 13 Therapeutic target for the treatment of diabetes mellitus patients is <7% HBA1C, and in selective patients <6.0%. Please refer to [place] [employer] diabetic care guidelines for further information. 14 *Ascorbic acid is present which may interfere with detection of blood. 15 AA 01/09 16 Because ethnic data is not always readily available, this report includes an eGFR for both -Americans and non- Americans. The National Kidney Disease Education Program (NKDEP) does not endorse the use of the MDRD equation for patients that are not between the ages of 18 and 70, are , have extremes of body size, muscle mass, or nutritional status, or are non- or non-. According to the National Kidney Foundation, irrespective of diagnosis, the stage of the disease is based on the level of kidney function: Stage Description GFR(mL/min/1.73 m(2)) 1 Kidney damage with normal or decreased GFR 90 2 Kidney damage with mild decrease in GFR 60-89 3 Moderate decrease in GFR 30-59 4 Severe decrease in GFR 15-29 5 Kidney failure <15 (or dialysis) 17 SEE RESULT BELOW Name: CATHRYN SEGUNDO : [address]: Denia Eagle MD Acct: [id number] Unit: [id number] AGE: 66 Location: [facility] Re12/29/16 SEX: M Status: REG REF SPEC: [id number] [place]LAH: 12/29/16 [facility] DR: Denia Eagle MD REQ: [id number] RECD: 12/29/16 STATUS: COMP TJ DR: Chace Díaz MD _ SOURCE: URINE SPDESC: ORDERED: Urine Culture COMMENTS: RA 01/09 QUERIES: Urine Source: Clean Catch Procedure Result Reported Site Urine Culture Final 12/30/16- 1217 ML No growth of clinically significant organisms * ML - MAIN LAB ([facility]1) . END OF REPORT * ML=Testing performed at Main Lab DEPARTMENT OF PATHOLOGY, [address] [place] [id number] Olaf Aguilera M.D. Director [facility] # [id number] 18 Desirable <150 Borderline high 150-199 High 200-499 Very High >500 19 Desirable <200 Borderline high 200-239 High >239 20 Low <40 Desirable: 40-60 High: >60 21 Desirable: <100 mg/dL Near Optimal: 100-129 mg/dL Borderline High: 130-159 mg/dL High: 160-189 mg/dL Very High: >189 mg/dL 22 Because ethnic data is not always readily available, this report includes an eGFR for both -Americans and non- Americans. The National Kidney Disease Education Program (NKDEP) does not endorse the use of the MDRD equation for patients that are not between the ages of 18 and 70, are , have extremes of body size, muscle mass, or nutritional status, or are non- or non-. According to the National Kidney Foundation, irrespective of diagnosis, the stage of the disease is based on the level of kidney function: Stage Description GFR(mL/min/1.73 m(2)) 1 Kidney damage with normal or decreased GFR 90 2 Kidney damage with mild decrease in GFR 60-89 3 Moderate decrease in GFR 30-59 4 Severe decrease in GFR 15-29 5 Kidney failure <15 (or dialysis) 23 Corrected result! Wrong result was 11.6. --- 03/13/16 6445 --- Hemoglobin A1c previously reported as: 11.6 H % Therapeutic target for the treatment of diabetes Mellitus patients is <7% HBA1C, and in selective patients <6.0%.Please refer to [place] [employer] Diabetic care guidelines for further information. 24 Serum levels of PSA measured using the [employer] DXI Hybritech immunoassay should not be interpreted as absolute evidence of the presence or absence of disease. The PSA value should be used in conjunction with other pertinent clinical diagnostic procedures. The values obtained with different assay methods or kits cannot be used interchangeably. 25 FASTING 26 Desirable <150 Borderline high 150-199 High 200-499 Very High >500 27 Desirable <200 Borderline high 200-239 High >239 28 Low <40 Desirable: 40-60 High: >60 29 Desirable <100 Near Optimal 100-129 Borderline high 130-159 High 160-189 Very High >189 30 Because ethnic data is not always readily available, this report includes an eGFR for both -Americans and non- Americans. The National Kidney Disease Education Program (NKDEP) does not endorse the use of the MDRD equation for patients that are not between the ages of 18 and 70, are , have extremes of body size, muscle mass, or nutritional status, or are non- or non-. According to the National Kidney Foundation, irrespective of diagnosis, the stage of the disease is based on the level of kidney function: Stage Description GFR(mL/min/1.73 m(2)) 1 Kidney damage with normal or decreased GFR 90 2 Kidney damage with mild decrease in GFR 60-89 3 Moderate decrease in GFR 30-59 4 Severe decrease in GFR 15-29 5 Kidney failure <15 (or dialysis) 31 Serum levels of PSA measured using the [employer] DXI Hybritech immunoassay should not be interpreted as absolute evidence of the presence or absence of disease. The PSA value should be used in conjunction with other pertinent clinical diagnostic procedures. The values obtained with different assay methods or kits cannot be used interchangeably. 32 Serum levels of PSA measured using the [employer] DXI Hybritech immunoassay should not be interpreted as absolute evidence of the presence or absence of disease. The PSA value should be used in conjunction with other pertinent clinical diagnostic procedures. The values obtained with different assay methods or kits cannot be used interchangeably. 33 Because ethnic data is not always readily available, this report includes an eGFR for both -Americans and non- Americans. The National Kidney Disease Education Program (NKDEP) does not endorse the use of the MDRD equation for patients that are not between the ages of 18 and 70, are , have extremes of body size, muscle mass, or nutritional status, or are non- or non-. According to the National Kidney Foundation, irrespective of diagnosis, the stage of the disease is based on the level of kidney function: Stage Description GFR(mL/min/1.73 m(2)) 1 Kidney damage with normal or decreased GFR 90 2 Kidney damage with mild decrease in GFR 60-89 3 Moderate decrease in GFR 30-59 4 Severe decrease in GFR 15-29 5 Kidney failure <15 (or dialysis) 34 HDL Interpretation: Undesirable: High Risk: Less than 40 mg/dL Desirable: Low Risk: Greater than 60 mg/dL 35 LDL Interpretation: Low Risk Optimal Level: LDL Less than 100 mg/dL Near or Above Optimal: LDL 100-129 mg/dL Borderline High Risk: LDL 130-159 mg/dL High Risk: LDL 160-189 mg/dL Very High Risk: LDL Greater than 189 mg/dL 36 CHOLESTEROL INTERPRETATION: Desirable: Less than 200 MG/DL Borderline-High Risk: 200-239 MG/DL High-Risk: 240 MG/DL and over 37 HDL INTERPRETATION: Undesirable: High Risk: Less than 40 MG/DL Desirable: Low Risk: Greater than 60 MG/DL 38 LDL INTERPRETATION: Low Risk Optimal Level: LDL Less than 100 MG/DL Near or Above Optimal: LDL 100-129 MG/DL Borderline High Risk: LDL 130-159 MG/DL High Risk: LDL 160-189 MG/DL Very High Risk: LDL Greater than 189 MG/DL 39 Anion gap measurement may be of limited value in the presence of any alkalosis, especially in a combined acid base disorder. . 40 A metabolite of Naproxen, O-desmethylnaproxen, has been shown to interfere with the [place] method for measuring total bilirubin. Samples from patients who have taken Naproxen have shown spurious elevation in total bilirubin levels. 41 Because ethnic data is not always readily available, this report includes an eGFR for both -Americans and non- Americans. The National Kidney Disease Education Program (NKDEP) does not endorse the use of the MDRD equation for patients that are not between the ages of 18 and 70, are , have extremes of body size, muscle mass, or nutritional status, or are non- or non-. According to the National Kidney Foundation, irrespective of diagnosis, the stage of the disease is based on the level of kidney function: Stage Description GFR(mL/min/1.73 m(2)) 1 Kidney damage with normal or decreased GFR 90 2 Kidney damage with mild decrease in GFR 60-89 3 Moderate decrease in GFR 30-59 4 Severe decrease in GFR 15-29 5 Kidney failure <15 (or dialysis) 42 * SERUM LEVELS OF PSA MEASURED USING THE [employer] ACCESS HYBRITECH IMMUNOASSAY SHOULD NOT BE INTERPRETED ABSOLUTE EVIDENCE OF THE PRESENCE OR ABSENCE OF DISEASE. THE PSA VALUE SHOULD BE USED IN CONJUNCTION WITH OTHER PERTINENT CLINICAL DIAGNOSTIC PROCEDURES. The values obtained with different assay methods or kits cannot be used interchangeably. 43 Anion gap measurement may be of limited value in the presence of any alkalosis, especially in a combined acid base disorder. . 44 A metabolite of Naproxen, O-desmethylnaproxen, has been shown to interfere with the [place] method for measuring total bilirubin. Samples from patients who have taken Naproxen have shown spurious elevation in total bilirubin levels. 45 Because ethnic data is not always readily available, this report includes an eGFR for both -Americans and non- Americans. The National Kidney Disease Education Program (NKDEP) does not endorse the use of the MDRD equation for patients that are not between the ages of 18 and 70, are , have extremes of body size, muscle mass, or nutritional status, or are non- or non-. According to the National Kidney Foundation, irrespective of diagnosis, the stage of the disease is based on the level of kidney function: Stage Description GFR(mL/min/1.73 m(2)) 1 Kidney damage with normal or decreased GFR 90 2 Kidney damage with mild decrease in GFR 60-89 3 Moderate decrease in GFR 30-59 4 Severe decrease in GFR 15-29 5 Kidney failure <15 (or dialysis) 46 PLEASE NOTE NEW REFERENCE RANGE. 47 CHOLESTEROL INTERPRETATION: Desirable: Less than 200 MG/DL Borderline-High Risk: 200-239 MG/DL High-Risk: 240 MG/DL and over 48 HDL INTERPRETATION: Undesirable: High Risk: Less than 40 MG/DL Desirable: Low Risk: Greater than 60 MG/DL 49 LDL INTERPRETATION: Low Risk Optimal Level: LDL Less than 100 MG/DL Near or Above Optimal: LDL 100-129 MG/DL Borderline High Risk: LDL 130-159 MG/DL High Risk: LDL 160-189 MG/DL Very High Risk: LDL Greater than 189 MG/DL 50 Anion gap measurement may be of limited value in the presence of any alkalosis, especially in a combined acid base disorder. . 51 A metabolite of Naproxen, O-desmethylnaproxen, has been shown to interfere with the Jendrassik-Vinicio method for measuring total bilirubin. Samples from patients who have taken Naproxen have shown spurious elevation in total bilirubin levels. 52 Because ethnic data is not always readily available, this report includes an eGFR for both -Americans and non- Americans. The National Kidney Disease Education Program (NKDEP) does not endorse the use of the MDRD equation for patients that are not between the ages of 18 and 70, are , have extremes of body size, muscle mass, or nutritional status, or are non- or non-. According to the National Kidney Foundation, irrespective of diagnosis, the stage of the disease is based on the level of kidney function: Stage Description GFR(mL/min/1.73 m(2)) 1 Kidney damage with normal or decreased GFR 90 2 Kidney damage with mild decrease in GFR 60-89 3 Moderate decrease in GFR 30-59 4 Severe decrease in GFR 15-29 5 Kidney failure <15 (or dialysis) 53 ---- RUN DATE: 07/15/09 [facility] NMI LIVE PAGE 1 RUN TIME: 1454 Specimen Inquiry RUN USER: INTERFACE -- Name: EPRRY SEGUNDO#: [id number] Status: REG REF Re07/14/09 Age/Sex: 58/M Unit#: [id number] Location: [facility] : 46 -- Specimen: [id number] HEATHER Spec Date: 07/14/[address]: Fox enriquez MD Spec Type: SURGICAL P Received: 07/14/09-1311 Copies to: Chace Díaz MD SPECIMEN BIOPSY COLON POLYP AT 30 CM. HISTORY POST-OP DIAGNOSIS: Small polyp removed CLINICAL INFORMATION: Screening colonoscopy with history of colon polyps (2000) GROSS DESCRIPTION The specimen is received in formalin labelled Perry Segundo, Biopsy Colon Polyp at 30 cm., and consists of a workman, soft tissue fragment measuring 0.3 x 0.2 x 0.2 cm. Submitted entirely, one cassette. DIAGNOSIS Colon, 30 cm., biopsy: A. Tubular adenoma. B. No high grade dysplasia or malignancy. Signed Electronically by: OLAF AGUILERA MD 07/15/09 1451 -- -- DEPARTMENT OF PATHOLOGY, [address] [place] [address] [facility] Permit #[id number] Olaf Aguilera M.D. Director Enriqueta Painter M.D. Target Aircraft Technician Dir gaurav -- 54 CHOLESTEROL INTERPRETATION: Desirable: Less than 200 MG/DL Borderline-High Risk: 200-239 MG/DL High-Risk: 240 MG/DL and over 55 HDL INTERPRETATION: Undesirable: High Risk: Less than 40 MG/DL Desirable: Low Risk: Greater than 60 MG/DL 56 LDL INTERPRETATION: Low Risk Optimal Level: LDL Less than 100 MG/DL Near or Above Optimal: LDL 100-129 MG/DL Borderline High Risk: LDL 130-159 MG/DL High Risk: LDL 160-189 MG/DL Very High Risk: LDL Greater than 189 MG/DL 57 * SERUM LEVELS OF PSA MEASURED USING THE TopPatch ACCESS HYBRITECH IMMUNOASSAY SHOULD NOT BE INTERPRETED ABSOLUTE EVIDENCE OF THE PRESENCE OR ABSENCE OF DISEASE. THE PSA VALUE SHOULD BE USED IN CONJUNCTION WITH OTHER PERTINENT CLINICAL DIAGNOSTIC PROCEDURES. A PSA value in the range of 0.1 to 0.6 ng/ml is indeterminate if being used as an indicator of recurrent or residual disease. . 58 Anion gap measurement may be of limited value in the presence of any alkalosis, especially in a combined acid base disorder. . 59 Note change in reference range as of 10/24/07. The change was based on recommendations from the [place] [employer]. 60 Please note change in reference range effective 07 . 61 Because ethnic data is not always readily available, this report includes an eGFR for both -Americans and non- Americans. The National Kidney Disease Education Program (NKDEP) does not endorse the use of the MDRD equation for patients that are not between the ages of 18 and 70, are , have extremes of body size, muscle mass, or nutritional status, or are non- or non-. According to the National Kidney Foundation, irrespective of diagnosis, the stage of the disease is based on the level of kidney function: Stage Description GFR(mL/min/1.73 m(2)) 1 Kidney damage with normal or decreased GFR 90 2 Kidney damage with mild decrease in GFR 60-89 3 Moderate decrease in GFR 30-59 4 Severe decrease in GFR 15-29 5 Kidney failure <15 (or dialysis) 62 * SERUM LEVELS OF PSA MEASURED USING THE ALIZA Epy.io ACCESS HYBRITECH IMMUNOASSAY SHOULD NOT BE INTERPRETED ABSOLUTE EVIDENCE OF THE PRESENCE OR ABSENCE OF DISEASE. THE PSA VALUE SHOULD BE USED IN CONJUNCTION WITH OTHER PERTINENT CLINICAL DIAGNOSTIC PROCEDURES. A PSA value in the range of 0.1 to 0.6 ng/ml is indeterminate if being used as an indicator of recurrent or residual disease. . 63 Anion gap measurement may be of limited value in the presence of any alkalosis, especially in a combined acid base disorder. . 64 Note change in reference range as of 10/24/07. The change was based on recommendations from the [place] [employer]. 65 Please note change in reference range effective 07 . 66 CHOLESTEROL INTERPRETATION: Desirable: Less than 200 MG/DL Borderline-High Risk: 200-239 MG/DL High-Risk: 240 MG/DL and over 67 HDL INTERPRETATION: Undesirable: High Risk: Less than 40 MG/DL Desirable: Low Risk: Greater than 60 MG/DL 68 LDL INTERPRETATION: Low Risk Optimal Level: LDL Less than 100 MG/DL Near or Above Optimal: LDL 100-129 MG/DL Borderline High Risk: LDL 130-159 MG/DL High Risk: LDL 160-189 MG/DL Very High Risk: LDL Greater than 189 MG/DL 69 * SERUM LEVELS OF PSA MEASURED USING THE TopPatch ACCESS HYBRITECH IMMUNOASSAY SHOULD NOT BE INTERPRETED ABSOLUTE EVIDENCE OF THE PRESENCE OR ABSENCE OF DISEASE. THE PSA VALUE SHOULD BE USED IN CONJUNCTION WITH OTHER PERTINENT CLINICAL DIAGNOSTIC PROCEDURES. A PSA value in the range of 0.1 to 0.6 ng/ml is indeterminate if being used as an indicator of recurrent or residual disease. . 70 Classification: High . 71 Classification: High . 72 CALCULATED LDL APPROXIMATES THE VALUE OF A DIRECT LDL MEASUREMENT. Classification: High . 73 Anion gap measurement may be of limited value in the presence of any alkalosis, especially in a combined acid base disorder. . Procedures Date Code Description Status 04/12/2017 30646 Hra-Admin Patient Focused Health Risk Assessment Completed Instrument 03/28/2016 89282 Hra-Admin Patient Focused Health Risk Assessment Completed Instrument 10/03/2014 [id number] Colonoscopy Completed 11/29/2012 65624 EKG, at Least 12 Leads w/Interpretation and Report Completed 09/28/2010 27175 EKG, at Least 12 Leads w/Interpretation and Report Completed 01/09/2007 76219 EKG, at Least 12 Leads w/Interpretation and Report Completed Encounters Type Date Location Provider Dx Diagnosis Office Visit 05/10/2017 Main Office Chace Díaz M.D. J20.9 Acute bronchitis, 10:45a unspecified M45.0 Ankylosing spondylitis of multiple sites in spine Office Visit 04/12/2017 10:45a Main Office Chace Díaz M.D. Z00.00 Encntr for general adult medical exam w/o abnormal findings M45.0 Ankylosing spondylitis of multiple sites in spine I10 Essential (primary) hypertension R73.01 Impaired fasting glucose E78.2 Mixed hyperlipidemia K59.00 Constipation, unspecified I78.1 Nevus, non-neoplastic Office Visit 12/26/2016 3:45p Main Office Chace Díaz Z01.818 Encounter for other M.D. preprocedural examination M16.11 Unilateral primary osteoarthritis, right hip Z23 Encounter for immunization Office Visit 06/19/2016 11:45a Main Office Carmelo [place] J20.9 Acute bronchitisMD unspecified Office Visit 03/28/2016 8:45a Main Office Chace Díaz M.D. Z00.00 Encntr for general adult medical exam w/o abnormal findings R73.01 Impaired fasting glucose E78.00 Pure hypercholesterolemia, unspecified R03.0 Elevated blood-pressure reading, w/o diagnosis of htn M45.0 Ankylosing spondylitis of multiple sites in spine Z23 Encounter for immunization Office Visit 02/09/2016 11:45a Main Office Chace Díaz R03.0 Elevated M.D. blood-pressure reading, w/o diagnosis of htn M16.11 Unilateral primary osteoarthritis, right hip Office Visit 04/07/2015 3:45p Main Office Miles De Santiago0.9 Acute bronchitis, M.D. unspecified Office Visit 01/26/2015 8:45a Main Office Chace Díaz Z00.01 Encounter for M.D. 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 347.10 Narcolepsy W/O Cataplexy Other Dis Office Visit 06/22/2011 9:30a Main Office Chace Díaz M.D. 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 300.01 Panic Disorder W/O Agoraphobia Office Visit 12/29/2010 9:30a Main Office Chace Díaz M.D. 723.1 Cervicalgia Office Visit 12/10/2010 10:45a Main Office Cris Beck 466.0 Bronchitis Acute Jose Robert Office Visit 11/29/2010 4:00p Main Office Chace Díaz M.D. 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 V70.0 Examination General Medical Routine AT Health Care Facility 347.10 Narcolepsy W/O Cataplexy Other Dis 272.2 Hyperlipidemia Mixed 238.2 Neoplasm Uncertain Behavior Skin Office Visit 04/06/2009 11:45a Main Office Stacey Cherry 550.92 Hernia Inguinal Jose Torres W/O Obstruct Or Gangrene Bilateral Not Recur Office Visit 10/16/2008 10:00a Main Office Yvette Cummings, 465.9 URI Upper PUMP ASSEMBLER-C Respiratory Infections Acute Unspec Sites Office Visit 05/01/2008 8:45a Main Office Sarahi Ocampo V70.0 Examination Vince Purdy General Medical Routine AT Health Care Facility 272.2 Hyperlipidemia Mixed 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 Office Visit 05/14/2007 Main Office Sarahi A. 486 Pneumonia Organism 9:30a Gurwinder, Unspec [facility] Office Visit 04/19/2007 Main Office Sarahi A. 486 Pneumonia Organism 9:45a Gurwinder, Unspec [facility] Office Visit 04/01/2007 Main Office Sarahi A. 486 Pneumonia Organism 9:00a Gurwinder, Unspec [facility] 382.9 Otitis Media Unspec Office Visit 03/07/2007 3:45p Main Office Sarahi A. Gurwinder, F.N.P.C. 786.2 Cough 465.9 URI Upper Respiratory Infections Acute Unspec Sites 382.9 Otitis Media Unspec Office Visit 01/09/2007 9:45a Main Office Chace Díaz M.D. 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 466.0 Bronchitis Acute Office Visit 06/06/2006 9:15a Main Office Chace Díaz M.D. 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 Shingrix next year.Discussed pros and cons of PSA testing. Patient desires yearly PSA testing, every other year. Due 2020.Follow up:CPE in 1 year , fasting labs a week before.E78.00 Pure hypercholesterolemia, unspecifiedNew Labs:CBC Auto Diff, Ordered: 04/25/18Comp Metabolic Panel, Ordered: 04/25/18Lipid Profile (Trig/Chol/HDL), Ordered: 02/21/ 19Comments:10 year risk of CAD is 18.4%After statin 13.6%ASA and Statin 12.4% His LDL has dropped over about 40pts in the last few years. He would be a reasonable candidate for statin therapy but he declines.M45.0 Ankylosing spondylitis of multiple sites in spineNew Labs:Erythrocyte Sed Rate, Ordered: C Reactive Protein, Ordered: 04/25/18Comments:Sx are manageable for now.He has had consultation with Dr Vaughn and declined DMR.I again encouraged him to consider consultation with Dr Samuel if he wants a new opinion. We discuss the idea of disease modifying medications.He declines for nowG47.429 Narcolepsy in conditions classified elsewhere without cataplComments: Stable.Using dextrostat rarely. Followed by Dr Waddell.I10 Essential (primary ) hypertensionComments:Well controlled on current medications.
--- NOTE | 2018-06-29 20:52 | ED ---
Head Injury - HPI Summary HPI Summary: 67-year-old male presents with head injury today. He states that he was cutting trees and a branch broke and landed on his head. He denies loss consciousness. He states he did have some difficulty concentrating with has since resolved. No change in vision. No photophobia. He admits to 8 out of 10 headache. No neck pain. No other injury. Denies any dizziness. Did have some nausea that has resolved. No vomiting. He is not on blood thinners. Has history of high blood pressure. Having no difficulties with speech. - History Of Current Complaint Chief Complaint: EDHeadInjury Stated Complaint: I HAD A TREE FALL ON ME PER PT Time Seen by Provider: 06/29/18 20:43 Pain Intensity: 8 - Allergies/Home Medications Allergies/Adverse Reactions: Allergies Allergy/AdvReac Type Severity Reaction Status Date / Time indomethacin Allergy Dizziness Verified 06/29/18 18:24 PMH/Surg Hx/FS Hx/Imm Hx Endocrine/Hematology History: Denies: Hx Anticoagulant Therapy Cardiovascular History: Reports: Hx Hypertension - on meds Respiratory History: Reports: Other Respiratory Problems/Disorders - hx of pneumonia GI History: Reports: Other GI Disorders - CONSTIPATION ISSUES Musculoskeletal History: Reports: Hx Arthritis, Hx Rheumatoid Arthritis, Hx Bursitis Sensory History: Reports: Hx Contacts or Glasses Denies: Hx Hearing Aid Opthamlomology History: Reports: Hx Contacts or Glasses Neurological History: Reports: Other Neuro Impairments/Disorders - MILD NARCOLEPSY, MILD NUMBNESS IN BILAT FEET Psychiatric History: Reports: Hx Anxiety - MEDS PRN, CLUSTERFOBIA - Surgical History Surgery Procedure, Year, and Place: OPEN LEFT INGUNIAL REPAIR WITH MESH 2009. TONSILLECTOMY 1949'S. R hip replacement Hx Anesthesia Reactions: No Infectious Disease History: No Infectious Disease History: Denies: Traveled Outside the [place] in Last 30 Days - Family History Known Family History: Positive: Non-Contributory - Social History Alcohol Use: Occasionally Alcohol Amount: 1 DRINK Q 2 DAYS Substance Use Type: Reports: None Smoking Status (MU): Former Smoker Type: Cigarettes Review of Systems Negative: Fever Negative: Chest Pain Positive: Nausea. Negative: Vomiting Positive: Headache All Other Systems Reviewed And Are Negative: Yes Physical Exam Triage Information Reviewed: Yes Vital Signs On Initial Exam: Initial Vitals Temp Pulse Resp BP Pulse Ox 98.4 F 82 16 160/112 96 06/29/18 18:25 06/29/18 18:25 06/29/18 18:25 06/29/18 18:25 06/29/18 18:25 Vital Signs Reviewed: Yes Appearance: Positive: Well-Appearing Skin: Positive: Warm, Dry, Other - contusion to back of head Head/Face: Positive: Normal Head/Face Inspection, Other - no step off, racoon eyes, gutierrez sign Eyes: Positive: Normal, EOMI, TOBIAS, Conjunctiva Clear ENT: Positive: Normal ENT inspection, Pharynx normal, TMs normal Neck: Positive: Other: - nontender neck, full ROM neck Respiratory/Lung Sounds: Positive: Clear to Auscultation, Breath Sounds Present Cardiovascular: Positive: Normal, RRR Musculoskeletal: Positive: Normal Neurological: Positive: Sensory/Motor Intact, Alert, Oriented to Person Place, Time, CN Intact II-III Psychiatric: Positive: Normal - Gigi Coma Scale Best Eye Response: 4 - Spontaneous Best Motor Response: 6 - Obeys Commands Best Verbal Response: 5 - Oriented Coma Scale Total: 15 Diagnostics - Vital Signs Vital Signs Temp Pulse Resp BP Pulse Ox 06/29/18 18:25 98.4 F 82 16 160/112 96 - Laboratory Lab Statement: Any lab studies that have been ordered have been reviewed, and results considered in the medical decision making process. - CT brain CT Interpretation Completed By: Radiologist Summary of CT Findings: IMPRESSION: No acute intracranial abnormality. Head Injury Course/Dx Course Of Treatment: 67-year-old male presents with head injury today. He states that he was cutting trees and a branch broke and landed on his head. He denies loss consciousness. He states he did have some difficulty concentrating with has since resolved. No change in vision. No photophobia. He admits to 8 out of 10 headache. No neck pain. No other injury. Denies any dizziness. Did have some nausea that has resolved. No vomiting. He is not on blood thinners. Has history of high blood pressure. On exam has normal neuro exam. with trauma and age got CT. CT brain normal. Gave percussion precautions. Told to follow up primary. Patient understands agrees with plan. - Diagnoses Differential Diagnosis/HQI/PQRI: Concussion Without LOC, Contusion, Intracranial Bleed Provider Diagnoses: Head injury Discharge - Sign-Out/Discharge Documenting (check all that apply): Patient Departure Patient Received Moderate/Deep Sedation with Procedure: No - Discharge Plan Condition: Good Disposition: HOME Patient Education Materials: Head Injury (ED) Referrals: Chace Díaz MD [Primary Care Provider] - Additional Instructions: Place ice on area as needed Take Tylenol for headache every 6 hours Modify activities as tolerated Follow up with primary within 5 days Return to ED if any new or worsening symptoms - Billing Disposition and Condition Condition: GOOD Disposition: Home
[2018-06-29 20:55] VITALS: BP 172/114
== END 2018-06-29 20:48 | disposition home or self-care (01) ==
LOC: ED 18:08
DX: S09.90XA Unspecified injury of head, initial encounter (principal); W20.8XXA Other cause of strike by thrown, projected or falling object, initial encounter; I10 Essential (primary) hypertension; M06.9 Rheumatoid arthritis, unspecified; G47.419 Narcolepsy without cataplexy; R20.0 Anesthesia of skin; F41.9 Anxiety disorder, unspecified; Z88.8 Allergy status to other drugs, medicaments and biological substances; Z79.899 Other long term (current) drug therapy; Z87.891 Personal history of nicotine dependence
CPT/HCPCS: 70450; 99282

== ENCOUNTER 2019-04-08 12:33 | Day surgery (SDC) | payer OTHER ==
[~2019-04-08 12:33] MED LIST changes: -Buffered Lidocaine 0.9% SYRIN* 5 ML/SYR SYRINGE INTRADERM ONE; +Buffered Lidocaine 1% SYRIN* 1 ML/SYRINGE INTRADERM ONE; -Famotidine IV* 10 MG/ML 2 ML (20 mg) IV ONE; +Lactated Ringers 1000 ML Bag* 1,000 ML IV SCH; -Metoclopramide TAB* 10 MG PO ONE
[2019-04-08] MEDS ORDERED: ceFAZolin 2 GM PREMIX in ORs 2 GM/50 ML BAG ONE (13:19)
[2019-04-08] MEDS ORDERED: Midazolam* 1 MG/ML 2 ML VIAL (2 MG) ONE (15:21)
[2019-04-08] MEDS ORDERED: Bupivacaine 0.25% SDV PF* 10 ML VIAL INJ ONE (15:45)
[2019-04-08] MEDS ORDERED: Lidocaine 2% PF * 5 ML VIAL ONE (15:57)
[2019-04-08] MEDS ORDERED: Propofol* 10 MG/ML 20 ML BTL ONE ×2 (15:57→16:26)
[2019-04-08] MEDS ORDERED: Ketorolac INJ* 30 MG/ML 1 ML VIAL IV PRN (16:32)
[2019-04-08] MEDS ORDERED: Naloxone* 0.4 MG/ML 1 ML VIAL IV PRN (16:32)
[2019-04-08] MEDS ORDERED: Ondansetron INJ* 2 MG/ML VIAL IV PRN (16:32)
[2019-04-08] MEDS ORDERED: Acetaminophen TAB* 325 MG PO PRN (16:32)
[2019-04-08] MEDS ORDERED: diPHENhydraMINE IV* 50 MG/ML 1 ml VIAL (BENADRYL) IV PRN (16:32)
[2019-04-08] MEDS ORDERED: oxyCODONE TAB* 5 MG TAB PO PRN (16:32)
[2019-04-08 18:08] VITALS: BP 134/83
== END 2019-04-08 17:43 | disposition home or self-care (01) ==
LOC: OR 12:33
PROVIDERS: ATTEND Plastic Surgery
DX: L72.0 Epidermal cyst (principal); I10 Essential (primary) hypertension; E78.00 Pure hypercholesterolemia, unspecified; Z87.891 Personal history of nicotine dependence; M45.9 Ankylosing spondylitis of unspecified sites in spine; G47.419 Narcolepsy without cataplexy; E78.5 Hyperlipidemia, unspecified
CPT/HCPCS: 88304; J0690; J2250; J2704; J3490